=== PATIENT | male | born 1955 | race Caucasian/White ===

== ENCOUNTER 2018-07-08 08:21 | Day surgery (SDC) | payer BC, OTHER ==
[~2018-07-08] VITALS: Ht 190.5 cm; Wt 104.3 kg
[~2018-07-08 08:21] MED LIST: FISH OIL 1,001000 M2 PO; IBUPROFEN 800800 M1 PO
[2018-07-08 10:24] VITALS: BP 159/95
[2018-07-08 11:45] VITALS: BP 159/95
--- NOTE | 2018-07-08 22:16 | O ---
[facility] [place] [address] OPERATIVE REPORT Name: ABHINAV TONEY Room #: DEP [facility].#: [id number] Admission: 07/08/18 Attend Phys: Florentino Alvarado MD Discharge: 07/08/18 Date of : 59 Report #: [id number] THIS REPORT FOR: //name// CC: Edgardo Alvarado DATE OF SERVICE: 07/08/2018 SERVICE: Orthopedics. FACILITY: [facility]. SURGEON: Florentino Alvarado MD SHOE REPAIRER HELPER: Reema Tee NP PREOPERATIVE DIAGNOSES: 1. Left knee pain and swelling. 2. Left knee unstable medial meniscus tear. POSTOPERATIVE DIAGNOSES: 1. Left knee pain and swelling. 2. Left knee unstable medial meniscus tear. PROCEDURE: Left knee arthroscopy with partial medial meniscectomy. COMPLICATIONS: None. DRAINS: None. SPECIMENS: None. ANESTHESIA: General. FINDINGS: 1. Complex medial meniscus tear. 2. 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 HISTORY AND INDICATIONS: The patient is a 63-year-old gentleman with a history of progressive persistent left knee pain and swelling. We tried multiple injections as well as aspirations, activity modifications, therapeutic exercises and modalities, but all of these provided insufficient relief. He continued to have pain and swelling. He had an MRI, which showed a complex medial meniscus tear. Risks, benefits, alternatives, and indication of surgery were discussed with him in detail. Risks include but not limited to pain, bleeding, infection, [facility] [address] [place] [address] OPERATIVE REPORT Name: ABHINAV TONEY Room #: DEP [facility] M..#: [id number] Admission: 07/08/18 Attend Phys: Florentino Alvarado MD Discharge: 07/08/18 Date of : 59 Report #: [id number] injury to nerves or blood vessels, persistent pain despite surgical intervention, progression of preexisting chondral injury, stiffness, need for further surgery as well without complications related to anesthesia such as stroke, heart attack, pulmonary complications, thromboembolic disease and . Despite these risks, he wished to proceed. PROCEDURE IN DETAIL: After left lower extremity was correctly identified in the preoperative holding area as the operative extremity, the patient was taken to the operating where general anesthesia was induced without complication. He was padded appropriately. Prophylactic antibiotics were administered at appropriate time. Tourniquet was applied to the left leg. Left lower extremity was then prepped and draped in standard sterile fashion. Timeout procedure performed. Esmarch was utilized. Tourniquet was inflated to 300 mmHg. Standard anterolateral as well as anteromedial working portals were established in typical fashion. There was noted to be synovitis. There was a significant amount of synovial fluid that egressed and was lavaged out of the knee. The patellofemoral had some mild chondromalacia particularly on the patellar side, but the trochlea overall looked good. The ACL and PCL were intact. The lateral compartment had some grade 2 chondromalacia of the majority of the lateral tibial plateau, but there were no significant delamination or full thickness lesions present. The lateral meniscus was normal. The medial compartment was evaluated. There was an unstable radial oriented tear of the posterior horn of the medial meniscus with a flap component that displaced into the knee. This was treated with debridement with a biter followed by a shaver, and then the meniscus was debrided to a stable parameter, approximately 30% of meniscal volume was resected. The meniscus was then probed and found to be stable. A limited chondroplasty was then performed of the chondromalacia in the medial compartment. The arthroscopic effusion was drained and instruments were removed from the knee. The portal sites were closed, sterile dressing applied. The patient was awakened from anesthesia and taken to recovery room in stable condition. There were no complications. All counts were reported as correct. <ELECTRONICALLY SIGNED> By: Florentino Alvarado MD 07/08/18 [id number] Florentino Alvarado MD /nt
== END 2018-07-08 12:30 | disposition home or self-care (01) ==
LOC: OR 08:21 → TBA 08:22 → OR 11:14
DX: S83.232A Complex tear of medial meniscus, current injury, left knee, initial encounter (principal); M94.262 Chondromalacia, left knee; M65.862 Other synovitis and tenosynovitis, left lower leg; Z88.6 Allergy status to analgesic agent; Z98.890 Other specified postprocedural states; X58.XXXA Exposure to other specified factors, initial encounter; Y93.89 Activity, other specified; Y92.89 Other specified places as the place of occurrence of the external cause; Y99.8 Other external cause status
CPT/HCPCS: 50010; 50101; 50405; 51038; 54170; 56527; 57103; 62110; 62900; 70005